=== PATIENT | female | born 1980 | race Caucasian/White ===

== ENCOUNTER 2025-05-24 16:18 | Emergency (ER) | payer OTHER, SELFPAY ==
[2025-05-24 16:27] VITALS: BP 130/80
[2025-05-24 17:53] VITALS: BMI 20.9
[2025-05-24] MEDS: VALIUM INJECTION 2 MG IV (19:26)
--- NOTE | 2025-05-24 19:26 | ED.GENMED ---
History of Present Illness
General
Chief Complaint: Change in Mental Status
Time Seen by Provider: 05/24/25 18:27
Nursing documentation reviewed up to this point in time: agreed with
History of Present Illness
History of Present Illness:
44-year-old female presents to the ER with her father for evaluation of alteration in behavior over the last 2 weeks. Patient has been intermittently confused and very fatigued. She has been sleeping but does not feel rested. She has not had any
recent change in her psychiatric medication regimen. She denies any illicit drug use. She denies any alcohol intake. Father provides history that she had been started on lithium and Vraylar which had been controlling her symptoms very well. She
unfortunately had 30 pound weight gain and then was initiated on a GLP-1. She abruptly lost a significant amount of weight and is no longer on this medication, however she still continues to take metformin daily. She has no prior personal history
of diabetes. She does have a history of bipolar and anxiety along with irritable bowel syndrome and hypothyroidism. She denies any syncope or trauma. She reports severe pervasive nausea and has been unable to eat or drink for the last few days.
She also reports feeling confused, as though she needs to search for words. No thoughts of self-harm.
Past History
Past History
ED Past Medical History: Psychiatric and Other (ibs)
ED Past Surgical History: Other (breast augmentation, hemorrhoidectomy)
Social History
Tobacco: Smoker
Alcohol: Occasional
Drug: None
Personal: Single
Living: alone
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
Family History
Family History: Other (n/c)
Review of Systems
Review of Systems
Allergies reviewed?: Yes
Phy Exam
Physical Exam
Physical Exam:
Patient is awake, alert, but appears fatigued, appears in no acute distress, head is NCAT, PERRL, EOMI mucous membranes moist, conjunctiva pink, heart regular rate and rhythm without murmurs or ectopy, lungs are clear to auscultation without wheezes
rales or rhonchi, no JVD, abdomen is soft and nontender on palpation, extremities without edema, GCS is 15 patient is methodical with rapid alternating movements but exhibits no ataxia or pronator drift, no focal weakness on exam, no hyperreflexia
noted, 2+ DP pulses present symmetric bilateral feet, no peripheral edema, normal affect
Course
Orders/Labs/Results
Orders:
Orders
05/24/25 18:59
0.9% Sodium Chloride 1000 ml [Nss] 1,000 ml IV BOLUS
Test Result ONCE
05/24/25 19:01
CT Head W/o Iv Contrast Urgent
Comment:
Reason For Exam: confusion
05/24/25 19:02
diazePAM [Valium Injection] 2 mg IV NOW STA
05/24/25 19:14
Acetaminophen Urgent
Alcohol Urgent
CKMB [CPK Isoenzyme] Urgent
COVID-19 Antigen Urgent
Source: Nasal Swab
Complete Blood Count/With Diff Urgent
Comprehensive Metabolic Panel Urgent
Fentanyl, Urine Urgent
HCG, Urine Qualitative Screen Urgent
Date Specimen was Collected: 05/24/25
Time Specimen was Collected: 19:09
[place] Urgent
Salicylate Urgent
Urine Drug Abuse Screen Urgent
Date Specimen was Collected: 05/24/25
Time Specimen was Collected: 19:09
Influenza A+B Rapid Molecular Urgent
RAFFI Source: Nasal Swab
Specimen Description:
05/24/25 19:17
Add On- LAB Urgent
Tests Added?: ckmb
05/24/25 19:18
EKG [Electrocardiogram (*1)] Urgent
Reason for Study: QTc Monitoring
EKG- Treatment ONCE
05/24/25 19:23
Lactate Level [Lactic Acid] Urgent
05/24/25 19:26
Ondansetron Injectable [Zofran] 4 mg IV NOW STA
05/24/25 20:25
Famotidine [Pepcid] 20 mg IV NOW STA
Abnormal Lab Results
05/24/25
19:14
RBC 3.82 L 10^6/uL
(4.20-5.40)
Hgb 11.3 L g/dL
(12.0-16.0)
Hct 35.4 L %
(37.0-47.0)
MCHC 31.9 L g/dL
(33.0-37.0)
Absolute Neuts (auto) 8.1 H 10^3/uL
(1.4-6.5)
Neutrophils % 77.0 H %
(42.2-75.2)
Lymphocytes % 16.3 L %
(20.5-51.1)
Sodium 133 L mmol/L
(135-145)
Glucose 144 H mg/dl
(70-99)
Total Protein 6.2 L g/dl
(6.3-8.2)
Salicylates < 1.0 L mg/dl
(2.0-20.0)
Acetaminophen < 10 L ug/ml
(10-30)
U Benzodiazepines Scrn Positive H
(Negative)
[place] 0.3 L mmol/L
(0.6-1.2)
05/24/25 19:14
05/24/25 19:14
Vital Signs
Initial and Last Documented VS:
Initial Vital Signs
Temp Pulse Resp BP Pulse Ox
98.8 F 88 18 130/80 100
05/24/25 16:27 05/24/25 16:27 05/24/25 16:27 05/24/25 16:27 05/24/25 16:27
Last Documented Vital Signs
Temp Pulse Resp BP Pulse Ox
98.8 F 71 10 130/80 99
05/24/25 16:27 05/24/25 20:15 05/24/25 20:15 05/24/25 16:27 05/24/25 20:15
MDM/Problems Addressed
Differential Diagnosis Includes:
Differential diagnosis to consider but not limited to lithium toxicity, acute kidney injury, dehydration, electrolyte dyscrasia along with other etiologies considered
Chronic conditions affecting care:
Bipolar, anxiety, depression
*Pulse Oximetry
SaO2: 100
Oxygen Mode of Delivery: Room air
Patient hypoxic: no
*EKG
Interpreted by ED Provider?: Yes (I independently viewed and interpreted twelve-lead EKG showing sinus rhythm with short IL, rate 72, normal axis, otherwise normal intervals, QTc 429 ms, no ST elevation, this is a borderline EKG without evidence for
acute ischemia)
*Manager People Interpretation
Rate: normal (I independently viewed and interpreted rhythm strip showing sinus rhythm with short IL, no ectopy)
Update Note
Update Note:
Valium had initially been ordered for nausea pending EKG. EKG does not show any evidence of QT punctation. IV Zofran ordered.
Pt tolerating water. I reviewed with patient and dad present at bedside very reassuring workup-no evidence for lithium toxicity, no lactic acidosis, kidney function preserved. I discussed with them likely polypharmacy as etiology of her symptoms
of benefit to follow-up with their prescriber for reevaluation and further care. CT head has not yet been taken, they agree with plan to await this result prior to discharge. Patient given trial of p.o. Full patient care transferred to Dr Vargas
for disposition pending CT results
ED Attending Note
-
Portions of this chart may have been created with voice recognition software.� Occasional wrong word or��sound alike� substitutions may have occurred due to the inherent limitations of voice recognition software.
Discharge Plan
Departure
Instructions: Altered Mental Status (DC)
Prescriptions:
New
ondansetron 4 mg tablet,disintegrating
4 mg PO TIDPRN PRN (Reason: nausea/vomiting) Qty: 10 0RF
No Action
metformin 500 mg Tablet
500 mg PO DAILY
levothyroxine [Synthroid] 100 mcg Tablet
100 mcg PO DAILY
citalopram [Celexa] 20 mg Tablet
20 mg PO DAILY
diazepam [Valium] 2 mg Tablet
2 mg PO Q6HPRN PRN (Reason: anxiety)
lithium carbonate 300 mg Capsule
300 mg PO BID
biotin 10,000 mcg Capsule
25,000 mcg PO DAILY
zolpidem [Ambien] 5 mg Tablet
5 mg PO HSPRN PRN (Reason: sleep)
Vraylar 1.5 mg Capsule
1.5 mg PO DAILY
benztropine 1 mg Tablet
1 mg PO DAILY
Referrals:
Tamir Lee, [Family Provider]
Activity Restrictions/Additional Instructions:
Please contact your prescribing physician to discuss your current medication regimen as you may benefit from a decrease/alteration in some of your medications.
Consider using Valium every 6 hours as needed, as this is written to decrease frequency of use to limit sleepiness
Use Pepcid as available [id number] daily until you are seen by your family doctor to help with nausea
Return to the ER for any concerns
Interventions
Interventions:
*Risk Screen - Suicide Last Done: 05/24/25 16:27
*General Assessment Last Done: 05/24/25 16:27
*ED COVID-19 Vaccine History Last Done: 05/24/25 16:27
*ED Influenza Vaccine History Last Done: 05/24/25 16:27
ED- Neurological Assessment Last Done: 05/24/25 17:53
ED- Cardiac Assessment Last Done: 05/24/25 17:53
ED Swallowing Screen Last Done: 05/24/25 17:53
Discharge Date and Time
Print Language: NIGERIAN
[2025-05-24] MEDS: NSS 1000 IV (19:27)
[2025-05-24 19:32] LABS: Hematocrit 35.4 % (37.0-47.0); Hemoglobin 11.3 g/dL (12.0-16.0); Mean Corp Hgb Conc. 31.9 g/dL (33.0-37.0); Mean Corpuscular Volume 92.7 fL (81.0-99.0); Nucleated Red Blood Cells % 0 %; Platelet Count 303 10^3/uL (130-400); Red Cell Dist. Width 13.5 % (11.5-14.5)
[2025-05-24 19:43] LABS: HCG, Urine Qualitative Screen Negative
[2025-05-24 19:44] LABS: ALT (SGPT) 12 U/L (0-35); AST (SGOT) 17 U/L (14-36); Acetaminophen < 10 ug/ml (10-30); Albumin 3.8 g/dl (3.5-5.0); Alkaline Phosphatase 71 U/L (38-126); Blood Urea Nitrogen 11 mg/dl (7-17); Calcium 9.0 mg/dl (8.4-10.2); Carbon Dioxide 29 mmol/L (22-30); Chloride 103 mmol/L (98-107); Estimated Creatinine Clearance 100 ml/min; Glucose 144 mg/dl (70-99); Lithium 0.3 mmol/L (0.6-1.2); Potassium 3.8 mmol/L (3.5-5.1); Salicylate < 1.0 mg/dl (2.0-20.0); Sodium 133 mmol/L (135-145); Total Protein 6.2 g/dl (6.3-8.2); eGFR > 60.00
[2025-05-24 19:54] LABS: COVID-19 Antigen Negative (Negative)
[2025-05-24] MEDS: PEPCID 20 MG IV (20:31)
== END 2025-05-24 22:22 | disposition home or self-care (01) ==
LOC: EMR 16:18
PROVIDERS: EMERGENCY PHYSICIAN Emergency Medicine; FAMILY PHYSICIAN Family Medicine
DX: R41.0 Disorientation, unspecified (principal); F31.9 Bipolar disorder, unspecified; F41.9 Anxiety disorder, unspecified; E03.9 Hypothyroidism, unspecified; K58.9 Irritable bowel syndrome, unspecified; F17.200 Nicotine dependence, unspecified, uncomplicated
CPT/HCPCS: 99284; 96374; 96375; 96361; 70450; 80053; 80143; 80178; 80179; 80306; 80307; 81025; 82077; 82550; 83605; 85025; 87502; 87811; 93005

== ENCOUNTER 2025-05-25 13:48 | Emergency (ER) | payer OTHER, SELFPAY ==
[2025-05-25 13:52] VITALS: BP 107/79
[2025-05-25 14:30] VITALS: BP 141/92
[2025-05-25 14:34] VITALS: BMI 21.6
--- NOTE | 2025-05-25 14:49 | EDRN ---
Elizabeth SIDDIQI in room w/ pt.
--- NOTE | 2025-05-25 14:52 | ED.GENMED ---
History of Present Illness
<Zeynep Victoria PA-C - Last Filed: 05/28/25 12:15>
General
Chief Complaint: Medication Reaction
Source: patient and records
Exam Limitations: none
Time Seen by Provider: 05/25/25 14:28
History of Present Illness
History of Present Illness:
44yoF with a history of bipolar disorder, depression, anxiety, and hypothyroidism presenting for evaluation of medication withdrawal. Patient was seen in the ED yesterday for ongoing confusion and dizziness over the past several weeks. She had an
extensive workup including lab work and a CT head which came back unrevealing. She received a dose of IV Valium while in the emergency department. After speaking with her boyfriend after discharge, she decided to throw away several of her home
medications for concern that these may be causing her symptoms. She reports throwing away her Valium, Ambien, Cogentin, and metformin. She typically takes Valium 2 mg 4 times daily and has been taking this for several years. She took her Celexa,
lithium, Vraylar, and Synthroid this morning. Patient is presenting with anxiety and shakiness. Patient states that they had to pull the car over today because she was feeling like she was about to . She believes she is in withdrawal from her
medications. She denies any suicidal ideations. She also admits to taking kratom to help her sleep at night. Last dose of kratom was 3 days ago. No suicidal ideations.
Past History
<Zeynep Victoria PA-C - Last Filed: 05/28/25 12:15>
Past History
ED Past Medical History: Psychiatric and Other (ibs)
ED Past Surgical History: Other (breast augmentation, hemorrhoidectomy)
Social History
Tobacco: Smoker
Alcohol: Occasional
Drug: None
Personal: Single
Living: alone
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
Family History
Family History: Other (n/c)
Phy Exam
<Zeynep Victoria PA-C - Last Filed: 05/28/25 12:15>
Physical Exam
Physical Exam:
Patient anxious, pacing around room
General Physical Exam
General Presentation: well appearing
General Skin: warm and dry
General Habitus: normal
General Mental: alert
ENT Exam
ENT Exam: normocephalic
Pulmonary Exam
Pulmonary Exam: no respiratory distress
Neurological Exam
Neurological Exam: alert
Daniel Coma Scale
Eye Opening: Spontaneous
Verbal Response: Oriented
Motor Response: Obeys Commands
GCS Total Score: 15
Skin Exam
Skin Exam: normal color and warm/dry
Psychiatric Exam
Psychiatric Exam: agitated and anxious
<Hari Zuleta PA-C - Last Filed: 05/26/25 16:33>
Morgan Coma Scale
GCS Total Score: 15
Course
<Zeynep Victoria PA-C - Last Filed: 05/28/25 12:15>
Orders/Labs/Results
Orders:
Orders
05/25/25 14:50
Crisis Consult Urgent
Reason for Consult: anxiety
diazePAM [Valium Injection] 5 mg IV NOW STA
05/25/25 14:51
Electrocardiogram (*1) Urgent
Reason for Study: Palpitations
EKG- Treatment ONCE
Test Result ONCE
05/25/25 15:09
Complete Blood Count/With Diff Urgent
Comprehensive Metabolic Panel Urgent
HCG, Serum Qualitative Screen Urgent
[place] Urgent
05/25/25 16:24
diazePAM [Valium Injection] 5 mg IV NOW STA
05/25/25 17:03
Lorazepam [Ativan] 1 mg IV NOW STA
05/25/25 17:25
Benztropine Mesylate [Cogentin] 1 mg IM NOW STA
05/25/25 17:30
Buprenorphine [Subutex] 4 mg SL ONCE ONE
05/25/25 18:32
Buprenorphine [Subutex] 4 mg SL ONCE ONE
05/26/25 00:36
diazePAM [Valium Injection] 10 mg IV NOW STA
05/26/25 01:06
Buprenorphine [Subutex] 4 mg SL NOW STA
05/26/25 07:06
Buprenorphine HCl [Belbuca] 300 mcg BUCCAL NOW STA
Diazepam [Valium] 5 mg PO NOW STA
05/26/25 11:18
Buprenorphine [Subutex] 4 mg SL NOW ONE
Abnormal Lab Results
05/25/25
15:09
RBC 4.12 L 10^6/uL
(4.20-5.40)
MCHC 32.7 L g/dL
(33.0-37.0)
Absolute Neuts (auto) 8.3 H 10^3/uL
(1.4-6.5)
Absolute Lymphs (auto) 1.0 L 10^3/uL
(1.2-3.4)
Neutrophils % 85.0 H %
(42.2-75.2)
Lymphocytes % 9.8 L %
(20.5-51.1)
Sodium 134 L mmol/L
(135-145)
Creatinine 0.5 L mg/dL
(0.6-1.0)
Glucose 106 H mg/dl
(70-99)
05/25/25 15:09
05/25/25 15:09
Vital Signs
Initial and Last Documented VS:
Initial Vital Signs
Temp Pulse Resp BP Pulse Ox
98.0 F 77 20 107/79 99
05/25/25 13:52 05/25/25 13:52 05/25/25 13:52 05/25/25 13:52 05/25/25 13:52
Last Documented Vital Signs
Temp Pulse Resp BP Pulse Ox
99.1 F 68 16 99/76 100
05/25/25 19:56 05/26/25 08:15 05/26/25 08:15 05/26/25 06:58 05/26/25 08:15
<Addison Garcia, - Last Filed: 05/25/25 17:11>
Orders/Labs/Results
Orders:
Orders
05/25/25 14:50
Crisis Consult Urgent
Reason for Consult: anxiety
diazePAM [Valium Injection] 5 mg IV NOW STA
05/25/25 14:51
Electrocardiogram (*1) Urgent
Reason for Study: Palpitations
EKG- Treatment ONCE
Test Result ONCE
05/25/25 15:09
Complete Blood Count/With Diff Urgent
Comprehensive Metabolic Panel Urgent
HCG, Serum Qualitative Screen Urgent
[place] Urgent
05/25/25 16:24
diazePAM [Valium Injection] 5 mg IV NOW STA
05/25/25 17:03
Lorazepam [Ativan] 1 mg IV NOW STA
05/25/25 17:25
Benztropine Mesylate [Cogentin] 1 mg IM NOW STA
05/25/25 17:30
Buprenorphine [Subutex] 4 mg SL ONCE ONE
05/25/25 18:32
Buprenorphine [Subutex] 4 mg SL ONCE ONE
05/26/25 00:36
diazePAM [Valium Injection] 10 mg IV NOW STA
05/26/25 01:06
Buprenorphine [Subutex] 4 mg SL NOW STA
05/26/25 07:06
Buprenorphine HCl [Belbuca] 300 mcg BUCCAL NOW STA
Diazepam [Valium] 5 mg PO NOW STA
05/26/25 11:18
Buprenorphine [Subutex] 4 mg SL NOW ONE
Abnormal Lab Results
05/25/25
15:09
RBC 4.12 L 10^6/uL
(4.20-5.40)
MCHC 32.7 L g/dL
(33.0-37.0)
Absolute Neuts (auto) 8.3 H 10^3/uL
(1.4-6.5)
Absolute Lymphs (auto) 1.0 L 10^3/uL
(1.2-3.4)
Neutrophils % 85.0 H %
(42.2-75.2)
Lymphocytes % 9.8 L %
(20.5-51.1)
Sodium 134 L mmol/L
(135-145)
Creatinine 0.5 L mg/dL
(0.6-1.0)
Glucose 106 H mg/dl
(70-99)
05/25/25 15:09
05/25/25 15:09
Vital Signs
Initial and Last Documented VS:
Initial Vital Signs
Temp Pulse Resp BP Pulse Ox
98.0 F 77 20 107/79 99
05/25/25 13:52 05/25/25 13:52 05/25/25 13:52 05/25/25 13:52 05/25/25 13:52
Last Documented Vital Signs
Temp Pulse Resp BP Pulse Ox
99.1 F 68 16 99/76 100
05/25/25 19:56 05/26/25 08:15 05/26/25 08:15 05/26/25 06:58 05/26/25 08:15
Chanalt;Hari Zuleta PA-C - Last Filed: 05/26/25 16:33>
Orders/Labs/Results
Orders:
Orders
05/25/25 14:50
Crisis Consult Urgent
Reason for Consult: anxiety
diazePAM [Valium Injection] 5 mg IV NOW STA
05/25/25 14:51
Electrocardiogram (*1) Urgent
Reason for Study: Palpitations
EKG- Treatment ONCE
Test Result ONCE
05/25/25 15:09
Complete Blood Count/With Diff Urgent
Comprehensive Metabolic Panel Urgent
HCG, Serum Qualitative Screen Urgent
[place] Urgent
05/25/25 16:24
diazePAM [Valium Injection] 5 mg IV NOW STA
05/25/25 17:03
Lorazepam [Ativan] 1 mg IV NOW STA
05/25/25 17:25
Benztropine Mesylate [Cogentin] 1 mg IM NOW STA
05/25/25 17:30
Buprenorphine [Subutex] 4 mg SL ONCE ONE
05/25/25 18:32
Buprenorphine [Subutex] 4 mg SL ONCE ONE
05/26/25 00:36
diazePAM [Valium Injection] 10 mg IV NOW STA
05/26/25 01:06
Buprenorphine [Subutex] 4 mg SL NOW STA
05/26/25 07:06
Buprenorphine HCl [Belbuca] 300 mcg BUCCAL NOW STA
Diazepam [Valium] 5 mg PO NOW STA
05/26/25 11:18
Buprenorphine [Subutex] 4 mg SL NOW ONE
Abnormal Lab Results
05/25/25
15:09
RBC 4.12 L 10^6/uL
(4.20-5.40)
MCHC 32.7 L g/dL
(33.0-37.0)
Absolute Neuts (auto) 8.3 H 10^3/uL
(1.4-6.5)
Absolute Lymphs (auto) 1.0 L 10^3/uL
(1.2-3.4)
Neutrophils % 85.0 H %
(42.2-75.2)
Lymphocytes % 9.8 L %
(20.5-51.1)
Sodium 134 L mmol/L
(135-145)
Creatinine 0.5 L mg/dL
(0.6-1.0)
Glucose 106 H mg/dl
(70-99)
05/25/25 15:09
05/25/25 15:09
Vital Signs
Initial and Last Documented VS:
Initial Vital Signs
Temp Pulse Resp BP Pulse Ox
98.0 F 77 20 107/79 99
05/25/25 13:52 05/25/25 13:52 05/25/25 13:52 05/25/25 13:52 05/25/25 13:52
Last Documented Vital Signs
Temp Pulse Resp BP Pulse Ox
99.1 F 68 16 99/76 100
05/25/25 19:56 05/26/25 08:15 05/26/25 08:15 05/26/25 06:58 05/26/25 08:15
<Zeynep Victoria PA-C - Last Filed: 05/28/25 12:15>
MDM/Problems Addressed
Differential Diagnosis Includes:
44yoF presenting for possible drug withdrawal. C/o anxiety and shakiness. Seen in ED yesterday for dizziness/confusion. Last dose of kratom 3 days ago. Also stopped multiple other home meds yesterday including Valium. Patient agitated during initial
exam and pacing around room. VSS. Differential diagnosis includes: kratom withdrawal, benzodiazepine withdrawal, polypharmacy, anxiety
Initial ED plan: Check CBC, CMP, HCG, and EKG. Will consult crisis. 5mg IV Valium for symptoms.
Final assessment: Labs unremarkable. EKG shows NSR without ischemic changes. Patient ultimately declined crisis consult stating she does not feel this is a psychiatric issue. Patient requiring multiple doses of medications here without any relief of
symptoms. She has received 5mg Valium x2, 1mg Ativan, and 1mg Cogentin. Suspect kratom withdrawal. No tachycardia, hypertension, diaphoresis noted to suggest benzodiazepine withdrawal and she has not any improvement after receiving IV benzos. She
was ultimately given 4mg Subutex which also did not help. Will redose. Case signed out at shift change awaiting [facility] consult.
<Zeynep Victoria PA-C - Last Filed: 05/28/25 12:15>
*Pulse Oximetry
SaO2: 95
Oxygen Mode of Delivery: Room air
*EKG
Interpreted by ED Provider?: Yes
EKG Intrepretation Date: 05/25/25
Heart Rate: 68
Rate: normal
Rhythm: sinus
[place]: normal axis
Interval: short FL
QRS Pattern: normal QRS
Ischemia: no ischemia
<Hari Zuleta PA-C - Last Filed: 05/26/25 16:33>
*Pulse Oximetry
Patient hypoxic: no
*Critical Care Note
Total Time (30-74mins, 75-104mins- exclusive of procedures): Not Applicable
<Hari Zuleta PA-C - Last Filed: 05/26/25 16:33>
Update Note
Update Note:
Assumed care of pt at shift change 1800. 44 yo female arriving with symptoms of Kratom withdrawal. Also out of benzos. Has received diazepam 5mg x 2, lorazepam 1mg x 1, cogentin 1mg x 2, and buprenorphine 4mg x 2
Reviewed case with [facility] transfer center for consideration of admission to [place] detox [facility]. However they do not have provider onsite this evening thus I feel this would not benefit the patient. Case again discussed with Lana jules who
has tentative placement for the patient at [facility] in [place] for tomorrow morning. Patient will remain in the emergency department receiving supportive treatment until placement can occur in the morning
05/26 0030: Patient woke up from sleep with recurrent symptoms. Requesting more medications. Plan will be to continue to medicate PRN and await [facility] placement tomorrow AM. Will sign out to Dr Beach for further obs
ED Attending Note
<Zeynep Victoria PA-C - Last Filed: 05/28/25 12:15>
-
Portions of this chart may have been created with voice recognition software.� Occasional wrong word or��sound alike� substitutions may have occurred due to the inherent limitations of voice recognition software.
<Addison Garcia DO - Last Filed: 05/25/25 17:11>
ED Attending Note
Patient seen and examined by attending physician: Yes
I performed the substantive portion of visit, reviewed & personally made and approve the management plan that is documented in note by myself or LIA.: Yes
ED Attending Note:
44-year-old female who presents with [place] symptoms including dizziness, confusion, jerking movements, 'skin crawling', and feeling anxious. Patient admits that she was using kratom and recently stopped. In addition last night after being at the
hospital went home and her friend advised her to throw her medications out. She threw out her Cogentin and metformin. The symptoms however started before that. Patient denies any other substance abuse. Exam: Awake and alert. Occasional
myoclonic jerks. No respiratory distress. Assessment plan: Strongly suspect kratom withdrawal. Continue benzodiazepines for now. Question whether Subutex may be beneficial.
Discharge Plan
Departure
Patient Disposition: Acute Rehab Facility
Date of Disposition: 05/26/25
Time of Disposition: 02:16
Discharge Problem:
Polysubstance Withdrawal
Instructions: Substance use disorder
Prescriptions:
No Action
metformin 500 mg Tablet
500 mg PO DAILY
levothyroxine [Synthroid] 100 mcg Tablet
100 mcg PO DAILY
citalopram [Celexa] 20 mg Tablet
20 mg PO DAILY
diazepam [Valium] 2 mg Tablet
2 mg PO Q6HPRN PRN (Reason: anxiety)
lithium carbonate 300 mg Capsule
300 mg PO BID
biotin 10,000 mcg Capsule
25,000 mcg PO DAILY
zolpidem [Ambien] 5 mg Tablet
5 mg PO HSPRN PRN (Reason: sleep)
Vraylar 1.5 mg Capsule
1.5 mg PO DAILY
benztropine 1 mg Tablet
1 mg PO DAILY
ondansetron 4 mg tablet,disintegrating
4 mg PO TIDPRN PRN (Reason: nausea/vomiting) Qty: 10 0RF
Referrals:
Tamir Lee, DO [Family Provider]
Activity Restrictions/Additional Instructions:
Please go directly to acute rehabilitation. Please stop using kratom and consider weaning off of your diazepam
Interventions
Interventions:
*Risk Screen - Suicide Last Done: 05/25/25 14:35
*General Assessment Last Done: 05/25/25 14:34
*Neglect/Abuse Screening Last Done: 05/25/25 14:35
*ED- Fall Risk Assessment Last Done: 05/25/25 14:34
*ED COVID-19 Vaccine History Last Done: 05/25/25 14:34
*ED Influenza Vaccine History Last Done: 05/25/25 14:34
*Nursing Disposition Last Done: 05/26/25 11:39
ED-Skin Assessment Last Done: 05/25/25 19:56
ED- Pulmonary Assessment Last Done: 05/26/25 07:02
ED-EENT Assessment Last Done: 05/25/25 14:36
Discharge Date and Time
Discharge Date/Time: 05/26/25 11:39
Print Language: SETSWANA
[2025-05-25 15:00] VITALS: BP 120/77
[2025-05-25 15:15] LABS: Hematocrit 37.3 % (37.0-47.0); Hemoglobin 12.2 g/dL (12.0-16.0); Mean Corp Hgb Conc. 32.7 g/dL (33.0-37.0); Mean Corpuscular Volume 90.5 fL (81.0-99.0); Nucleated Red Blood Cells % 0 %; Platelet Count 330 10^3/uL (130-400); Red Cell Dist. Width 13.5 % (11.5-14.5)
--- NOTE | 2025-05-25 15:24 | EDRN ---
unable to get IV in post 2 attempts. Texted VAT RN at this time. Satya bloods but IV would not float and then occluded. Pt asking IM shot of valium at this time. Also pt has been taking Kratum can be bought legally for a 'feel good' from your local
gas station?? states father. Pt is not being clear how often she is taking this. Elizabeth Victoria PA texted this message at this time.
[2025-05-25 15:31] LABS: HCG, Serum Qualitative Screen Negative
[2025-05-25 15:34] LABS: ALT (SGPT) 14 U/L (0-35); AST (SGOT) 22 U/L (14-36); Albumin 4.4 g/dl (3.5-5.0); Alkaline Phosphatase 85 U/L (38-126); Blood Urea Nitrogen 7 mg/dl (7-17); Calcium 9.6 mg/dl (8.4-10.2); Carbon Dioxide 27 mmol/L (22-30); Chloride 106 mmol/L (98-107); Estimated Creatinine Clearance 100 ml/min; Glucose 106 mg/dl (70-99); Lithium 0.7 mmol/L (0.6-1.2); Potassium 4.5 mmol/L (3.5-5.1); Sodium 134 mmol/L (135-145); Total Protein 7.0 g/dl (6.3-8.2); eGFR > 60.00
[2025-05-25] MEDS: VALIUM INJECTION 5 MG IV ×2 (15:54→16:35)
--- NOTE | 2025-05-25 16:33 | EDRN ---
Crisis was in to see pt. Pt declined crisis intervention saying to them this is a medical problem. This RN GIOVANNI SIDDIQI.
[2025-05-25 16:45] VITALS: BP 111/76
--- NOTE | 2025-05-25 16:46 | EDRN ---
Pt states the valium is not working.
--- NOTE | 2025-05-25 17:25 | EDRN ---
Pharmacy called to send the cogentin at this time. This RN told pharmacist that pt has been taking Kratum and Mariella pharmacist that subutex has been given for withdrawal. Will share this w/ M. Esme SIDDIQI.
[2025-05-25] MEDS: SUBUTEX 4 MG SL ×2 (17:52→18:57)
[2025-05-25] MEDS: ATIVAN 1 MG IV (17:52)
[2025-05-25] MEDS: COGENTIN 1 MG IM (17:52)
--- NOTE | 2025-05-25 17:58 | EDRN ---
[facility] to call pt in 15 minutes.
[2025-05-25 19:56] VITALS: BP 131/90
--- NOTE | 2025-05-25 19:57 | EDRN ---
Pt lying on stretcher when this RN entered room to make introduction and obtain set of vital signs. Pt says the medications she was given have not helped her symptoms stating she has to pace the room. Offered pt beverage father said pt has not
eaten or had much to drink in few days. Pt requested apple juice. Father said they are waiting to hear if pt is accepted at an [place] facility. Informed will check with ED PA about plan of care. When this RN returned to pt room with apple
juice and boxed turkey sandwich meal, informed pt and her father that DEVANG Luke is waiting to hear if pt is accepted at [facility], they were on the phone with [facility].
[2025-05-26 00:16] VITALS: BP 113/59
--- NOTE | 2025-05-26 00:18 | EDRN ---
Pt called and asked where her Dad was. Pt informed he went home awhile ago because she was sleeping and that he will return in the morning to take her to the facility. Pt surprised she slept and says she had no idea what was going on when she
woke. VS updated. Pt given large cup apple juice per request. Pt finished first large cup, small 4 oz cup and ate half the turkey sandwich. Light above sink turned off and pt encouraged to get more sleep.
--- NOTE | 2025-05-26 00:27 | EDRN ---
Pt called and asked what the last medicine was that she received. Pt then asked if she can have more medicine. TT to Luba SIDDIQI with pt's request.
[2025-05-26] MEDS: VALIUM INJECTION 10 MG IV (00:42)
--- NOTE | 2025-05-26 01:09 | EDRN ---
Pt called few minutes ago, was standing in room folding clothes putting them into her bag. Pt asked again about subutex and says the valium (10mg IV) did not do anything for her. Pt informed her concern and request will be relayed to Luba SIDDIQI. Luba
Song SIDDIQI aware.
[2025-05-26] MEDS: SUBUTEX 4 MG SL ×2 (01:23→11:26)
--- NOTE | 2025-05-26 06:00 | EDRN ---
Pt called and asked 'can I get that ativan again?' Informed pt there are no medications ordered at this time. Pt asked about subutex, how long it lasts. Pt said 'I actually feel pretty good right now. So good I think I can go home.' Pt asked if
there are any 'outside doctors' which lead to pt asking if the doctor who prescribes her medications would prescribe her subutex. Informed pt she will need to discuss this with her physician. Asked pt if she was still interested in going to detox
which is scheduled in few hours 'I don't want to go anywhere.' Pt asked if her father is returning and this RN reminded her he will return around [id number]. Updated pt on time of day and she said she would try to get some more sleep. Pt declined
repositioning, food/beverage, additional blankets.
[2025-05-26 06:58] VITALS: BP 99/76
[2025-05-26] MEDS: VALIUM 5 MG PO (07:20)
[2025-05-26] MEDS: BELBUCA 300 MCG BUCCAL (07:21)
== END 2025-05-26 11:39 ==
LOC: EMR 13:48
PROVIDERS: Physician Assistant; EMERGENCY PHYSICIAN Emergency Medicine; FAMILY PHYSICIAN Family Medicine
DX: F19.939 Other psychoactive substance use, unspecified with withdrawal, unspecified (principal); F41.9 Anxiety disorder, unspecified; F31.9 Bipolar disorder, unspecified; E03.9 Hypothyroidism, unspecified; K58.9 Irritable bowel syndrome, unspecified; F17.200 Nicotine dependence, unspecified, uncomplicated
CPT/HCPCS: 99285; 96374; 96375; 96376 ×2; 96372; 80053; 80178; 84703; 85025; 93005; J0515